=== PATIENT | female | born 2000 | race Hispanic/Latino ===

== ENCOUNTER 2023-02-04 11:39 | Emergency (ER) | payer OTHER ==
[~2023-02-04] VITALS: Ht 157.5 cm; Wt 81.6 kg
[2023-02-04 12:53] LABS: APPEARANCE,URINE CLEAR (CLEAR); BILIRUBIN,URINE NEGATIVE (NEGATIVE); COLOR,URINE YELLOW (YELLOW); GLUCOSE, URINE (UA) NEGATIVE (NEGATIVE); KETONES,URINE 60 mg/dL (NEGATIVE); LEUKOCYTE ESTERASE ,URINE 75 Leu/uL (NEGATIVE); NITRATE,URINE NEGATIVE (NEGATIVE); OCCULT BLOOD,URINE NEGATIVE (NEGATIVE); PROTEIN,URINE 30 mg/dL (NEGATIVE); UROBILINOGEN,URINE 3 mg/dL (0.2-1.0)
[2023-02-04 12:55] LABS: HCG,QUALITATIVE URINE NEGATIVE (NEGATIVE)
[2023-02-04 13:00] LABS: ADD UA MICROSCOPIC YES; AMPHET/METH SCREEN,URINE NEGATIVE (NEGATIVE); BARBITURATE SCREEN, URINE NEGATIVE (NEGATIVE); BENZODIAZEPINES SCREEN,URINE POSITIVE (NEGATIVE); CANNABINOID SCREEN,URINE POSITIVE (NEGATIVE); COCAINE SCREEN,URINE POSITIVE (NEGATIVE); OPIATE SCREEN,URINE NEGATIVE (NEGATIVE); PHENCYCLIDINE SCREEN,URINE NEGATIVE (NEGATIVE)
[2023-02-04 13:14] LABS: BACTERIA,URINE RARE /HPF (None Seen); MUCUS,URINE MANY LPF (None Seen); SQUAMOUS EPITHELIAL CELL,UR MOD /HPF (0-2)
[2023-02-04 13:15] LABS: HEMATOCRIT 42.4 % (36-48); MEAN CORPUSCULAR HEMOGLOBIN 28.7 pg (27.0-33.0); MEAN CORPUSCULAR HGB CONC 33.7 g/dL (32.0-36.0); MEAN CORPUSCULAR VOLUME 85.1 fL (80-100); RED BLOOD CELL COUNT(AUTO) 4.98 MIL/uL (4.00-5.50); RED CELL DISTRIBUTION WIDTH 12.9 % (11.0-15.5); WHITE BLOOD COUNT (AUTO) 11.3 K/uL (4.8-10.8)
[2023-02-04 13:21] LABS: CREATININE 0.7 mg/dL (0.5-1.5); POTASSIUM 3.4 mmol/L (3.5-5.1)
[2023-02-04] MEDS ORDERED: 0.9%NACL 1000ML 1,000 ML IV ONE (15:30)
[2023-02-04] MEDS ORDERED: CEFTRIAXONE 2GM VIAL IVPB ONE (15:30)
[2023-02-04] MEDS ORDERED: CEPH500B PO (17:48)
[2023-02-04] MEDS ORDERED: METO-296 PO (17:48)
[2023-02-04] MEDS ORDERED: PHEN-847 PO (17:48)
[2023-02-04 18:06] VITALS: BP 97/54; PULSE 59; RESP 20; O2SAT 95
== END 2023-02-04 18:17 | disposition home or self-care (01) ==
LOC: EDH 11:39
DX: N39.0 Urinary tract infection, site not specified (principal); F14.90 Cocaine use, unspecified, uncomplicated; Z98.890 Other specified postprocedural states; Z79.899 Other long term (current) drug therapy
CPT/HCPCS: 99285; 96365; 70450; 71045; 82550; 84484; 80048; 80305; 85027; 87088; 81025; 36415; 93005; 81001; J7030; J0696